=== PATIENT | female | born 2005 | race Two or more races ===

== ENCOUNTER 2023-04-07 13:35 | Emergency (ER) | payer BC ==
[2023-04-07 15:04] LABS: #Basophils 0.1 10x3/uL (0.0-0.2); #Monocytes 0.5 10x3/uL (0.0-1.1); #Neutrophils 6.7 10x3/uL (1.5-8.4); %Basophils 0.7 % (0.0-2.0); %Eosinophils 0.4 % (0.0-6.0); %Lymphocytes 25.2 % (18.0-47.0); %Monocytes 4.6 % (0.0-10.0); %Neutrophils 68.9 % (40.0-75.0); Hematocrit 45.3 % (34.9-44.5); Hemoglobin 15.5 g/dL (12.0-15.5); Mean Corpuscular HGB CONC 34.2 g/dL (32.0-36.0); Mean Corpuscular Hemoglobin 28.3 pg (27.0-33.0); Mean Corpuscular Volume 82.8 fl (81.6-98.3); Mean Platelet Volume 9.5 fl (7.4-10.4); Platelet Count 365 10x3/uL (150-450); RBC Distribution Width 12.1 % (11.5-14.5); Red Blood Cell (RBC) Count 5.47 10x6/uL (3.90-5.03); White Blood Cell (WBC) Count 9.7 10x3/uL (3.5-10.5)
[2023-04-07 15:20] LABS: ALT (SGPT) 14 U/L (8-55); AST (SGOT) 19 U/L (5-30); Albumin 4.7 g/dL (3.5-5.0); Alkaline Phosphatase 89 U/L (40-100); Anion Gap 17 mmol/L (10-20); BUN (Urea Nitrogen) 10 mg/dL (8.4-21.0); Bilirubin, Total 1.3 mg/dL (0.2-1.2); Calc. Creatinine Clearance 0 mL/min (70-130); Carbon Dioxide 23 mmol/L (22-29); Chloride 108 mmol/L (98-107); Estimated GFR 118; Globulin 3.6 g/dL (2.4-3.5); Glucose 89 mg/dL (70-105); Potassium 4.9 mmol/L (3.5-5.1); Protein, Total 8.3 g/dL (6.0-8.3); Sodium 143 mmol/L (136-145)
[2023-04-07 15:22] LABS: Troponin I Less than 0.010 ng/mL (< 0.028)
[2023-04-07] MEDS ORDERED: Meclizine HCl 25 MG TAB ONE (17:05)
[2023-04-07 17:42] LABS: BHCG - Serum Negative (NEGATIVE); Magnesium 1.8 mg/dL (1.7-2.2); Pregs Control Background? CLEAR/WHITE (CLR/WHITE); Pregs Control Bar Appear? YES (CONTROL BAR)
== END 2023-04-07 19:02 | disposition home or self-care (01) ==
LOC: CSHERS 13:35
DX: H66.93 Otitis media, unspecified, bilateral (principal); R42 Dizziness and giddiness; R11.2 Nausea with vomiting, unspecified; Z55.6 Problems related to health literacy
CPT/HCPCS: 36415; 71045; 80053; 83735; 84484; 84703; 85025; 85379; 93005; 96360; 96361